=== PATIENT | female | born 1985 | race Two or more races ===

== ENCOUNTER 2021-09-12 21:45 | Emergency (ER) | payer OTHER ==
[~2021-09-12] VITALS: Ht 167.6 cm; Wt 72.6 kg
[2021-09-12] MEDS ORDERED: ONDANSETRON HCL/PF 4 MG/2 ML VIAL ONE (21:56)
[2021-09-12] MEDS ORDERED: MORPHINE SULFATE INJ 4 MG/ML DISP.SYRIN ONE (21:57)
[2021-09-12] MEDS ORDERED: MORPHINE SULFATE INJ 2 MG/ML DISP.SYRIN IV ONE (22:00)
[2021-09-12] MEDS ORDERED: ONDANSETRON HCL/PF 4 MG/2 ML VIAL IVP ONE (22:00)
[2021-09-12] MEDS ORDERED: IV NS 0.9% 1,000 ML BAG IV ONE (22:00)
--- NOTE | 2021-09-12 22:08 | NUR ---
TO ER BED 10. [id number] FROM [facility] FOR MID EPIGASTRIC PAIN WITH NAUSEA AND VOMITTING SINCE 10AM. PT IS ALERT AND ORIENTED. AMBULATORY WITH STEADY GAIT. BREATHING IS EVEN AND NONLABORED. CONNECTED TO MONITOR. EMESIS BAG PROVIDED. PT KEPT COMFORTABLE. AWAITING MD ORDERS.
--- NOTE | 2021-09-12 22:10 | NUR ---
IV LINE ESTABLISHED, [id number]. BLOOD OBTAINED AND SENT TO LAB
--- NOTE | 2021-09-12 22:23 | NUR ---
WAIVER SIGNED AND PLACED IN PT CHART
[2021-09-12] MEDS ORDERED: IV NS 0.9% 250 ML IV ONE (22:50)
[2021-09-12] MEDS ORDERED: CT SWABBABLE VALVE TRANS SET 1 EA INFUS.SET MC ONE (22:50)
[2021-09-12] MEDS ORDERED: IOHEXOL-300 100 ML VIAL IV ONE (22:50)
[2021-09-12 23:02] LABS: BASOPHILS # (AUTO) 0.1 K/uL (0.0-0.2); BASOPHILS % (AUTO) 0.5 % (0.0-2.0); EOSINOPHILS % (AUTO) 1.1 % (0.0-6.0); HEMATOCRIT 37 % (33-45); LYMPHOCYTES # (AUTO) 3.2 K/uL (0.8-4.8); MEAN CORPUSCULAR HGB CONC 32 g/dl (31.0-36.0); MEAN CORPUSCULAR VOLUME 74 fL (82-100); MONOCYTES % (AUTO) 6.9 % (2.0-12.0); NEUTROPHILS # (AUTO) 10.6 K/uL (1.8-8.9); NEUTROPHILS % (AUTO) 70.5 % (43.0-81.0); PLATELET COUNT (AUTO) 496 K/uL (150-450); RED BLOOD CELL COUNT(AUTO) 5.08 MIL/uL (4.0-5.2); WHITE BLOOD COUNT (AUTO) 15.1 K/uL (4.3-11.0)
[2021-09-12 23:10] LABS: CALCIUM, SERUM 9.9 mg/dL (8.5-10.1); CREATININE 1.2 mg/dL (0.6-1.3); POTASSIUM 3.7 mmol/L (3.5-5.1)
[2021-09-12 23:22] LABS: ALBUMIN 4.3 g/dL (3.4-5.0); BILIRUBIN,DIRECT 0.1 mg/dL (0.0-0.2); BILIRUBIN,TOTAL 0.9 mg/dL (0.2-1.0); TOTAL PROTEIN, SERUM 8.7 g/dL (6.4-8.2)
--- NOTE | 2021-09-12 23:38 | NUR ---
PT TAKEN TO CT VIA [facility]
--- NOTE | 2021-09-12 23:43 | NUR ---
PT RETURNED FROM CT VIA [facility] [facility]
[2021-09-13] MEDS ORDERED: LIDOCAINE VISCOUS 2% UD 15 ML UDC ONE (01:25)
[2021-09-13] MEDS ORDERED: MAG HYDROX/AL HYDROX/SIMETH 30 ML UDC ONE (01:25)
[2021-09-13] MEDS ORDERED: MAG HYDROX/AL HYDROX/SIMETH 30 ML UDC PO ONE (01:30)
[2021-09-13] MEDS ORDERED: LIDOCAINE VISCOUS 2% UD 15 ML UDC MM ONE (01:30)
--- NOTE | 2021-09-13 02:17 | NUR ---
CALLED [facility] TO F/U WITH REPORT
--- NOTE | 2021-09-13 02:17 | NUR ---
CALLED [facility] FOR CT READING. WAS TOLD TO EXPECT 4 HOUR WAIT.
[2021-09-13] MEDS ORDERED: PROCHLORPERAZINE EDISYLATE 10 MG/2 ML VIAL IVP ONE (05:00)
[2021-09-13] MEDS ORDERED: PROCHLORPERAZINE EDISYLATE 10 MG/2 ML VIAL ONE (05:02)
[2021-09-13] MEDS ORDERED: ONDA4TAB11 PO (05:42)
--- NOTE | 2021-09-13 07:07 | NUR ---
[facility]ACESHEET [facility] CLINICALS FA[facility]ED TO [facility].
--- NOTE | 2021-09-13 07:50 | NUR ---
CALLED [facility] FOR FOLLOW UP, CLINICALS UNDER REVIEW.
--- NOTE | 2021-09-13 08:15 | NUR ---
SEEN BY DR HEAD
--- NOTE | 2021-09-13 08:38 | NUR ---
DR. WALLACE ON THE PHONE WITH DR. DARBY FROM [facility].
--- NOTE | 2021-09-13 10:27 | NUR ---
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 WAITING FOR A CALL FOR AN UPDATE AT THIS TIME.
--- NOTE | 2021-09-13 11:50 | NUR ---
Ellie mckeon in ED - 09/13/21 at 1215 by CHARISSA Patient eloped from [facility]. BRANDO PARTIDA notified.
[2021-09-13] MEDS ORDERED: LORAZEPAM 1 MG TABLET ONE (13:13)
[2021-09-13] MEDS ORDERED: LORAZEPAM 1 MG TABLET PO ONE (13:30)
--- NOTE | 2021-09-13 13:53 | NUR ---
SPOKE TO BRIJESH AT [facility], STILL NO UPDATE AT THIS TIME.
--- NOTE | 2021-09-13 14:03 | NUR ---
URINE COLLECTED AND SENT TO LAB
--- NOTE | 2021-09-13 14:03 | NUR ---
COVID SWAB DONE AND SENT TO LAB
[2021-09-13 14:29] LABS: BILIRUBIN,URINE NEGATIVE (NEGATIVE); COLOR,URINE YELLOW (YELLOW); LEUKOCYTE ESTERASE ,URINE NEGATIVE (NEGATIVE); NITRITE, URINE NEGATIVE (NEGATIVE); PROTEIN,URINE NEGATIVE (NEGATIVE); UGLUCOSE NEGATIVE (NEGATIVE); UROBILINOGEN,URINE 0.2 EU/dL (0.2)
[2021-09-13 14:58] LABS: ALCOHOL, BLOOD < 3 mg/dL (0-0)
[2021-09-13 15:09] LABS: ACETAMINOPHEN < 10 ug/ml (10-30)
[2021-09-13] MEDS ORDERED: LITH300T3 PO (15:47)
[2021-09-13] MEDS ORDERED: LITH600C PO (15:47)
[2021-09-13] MEDS ORDERED: PALI6TAB PO (15:47)
[2021-09-13] MEDS ORDERED: OMEG-167 PO (15:47)
[2021-09-13] MEDS ORDERED: OMEP20CA15 PO (15:47)
[2021-09-13] MEDS ORDERED: AMAN100T PO (15:47)
[2021-09-13] MEDS ORDERED: LITHIUM CARBONATE (300 MG CAP) 300 MG CAPSULE ONE ×2 (15:48→21:36)
[2021-09-13] MEDS: LITHIUM CARBONATE (300 MG CAP) 300 MG CAPSULE PO SCH ×2 (15:50→21:00)
--- NOTE | 2021-09-13 16:07 | NUR ---
FAXED LAB RESULTS TO [facility].
[2021-09-13 16:30] VITALS: BP 126/66
--- NOTE | 2021-09-13 17:55 | NUR ---
SPOKE TO CURTIS FROM [facility], SHE CONFIRMED RECEIVING THE LAB RESULTS, AND IS NOW UNDER REVIEW.
--- NOTE | 2021-09-13 18:43 | NUR ---
ACCEPTED TO [facility] [address] [phone] FOR REPORT
--- NOTE | 2021-09-13 18:45 | NUR ---
CALLED [facility] AND SPOKE WITH RUTH. ARRANGED TRANSPORT TO [facility] AND ETA IS 120 MIN
--- NOTE | 2021-09-13 19:19 | NUR ---
REPORT GIVEN TO MAT [facility]
--- NOTE | 2021-09-13 21:30 | NUR ---
Patient discharged to home in stable condition. Written and verbal after care instructions given. Patient verbalizes understanding of instruction.
== END 2021-09-13 11:50 | disposition left against medical advice (07) ==
LOC: ER 22:01
DX: R10.10 Upper abdominal pain, unspecified (principal); R11.2 Nausea with vomiting, unspecified; R45.851 Suicidal ideations; Z20.822 Contact with and (suspected) exposure to COVID-19; I10 Essential (primary) hypertension
CPT/HCPCS: 36415 ×2; 74177; 80048; 80076; 80143; 80307; 80320; 81003; 83690; 84703; 85025; 87426; 96361; 96374; 96375 ×2; 99285; C9803; J0780; J2270; J2405; J7030; J7050; Q9967; G0480